=== PATIENT | male | born 1960 | race Two or more races ===

== ENCOUNTER 2020-03-08 13:24 | Emergency (ER) | payer OTHER ==
[~2020-03-08] VITALS: Ht 165.1 cm; Wt 81.6 kg
[~2020-03-08 13:24] MED LIST: COZAAR25 MG; CRESTOR5 MG; JANUMET 50-1,1 UDTAB; JANUVIA25 MG
== END 2020-03-08 17:37 | disposition home or self-care (01) ==
LOC: ER 13:24 → CPU-OBS 13:35 → ER 17:37
DX: I16.1 Hypertensive emergency (principal); F06.4 Anxiety disorder due to known physiological condition; Z20.822 Contact with and (suspected) exposure to COVID-19
CPT/HCPCS: 70450; G0378; G0379; 93005

== ENCOUNTER 2020-10-11 08:00 | Outpatient (CLI) | payer OTHER | END 2020-10-11 08:30 | disposition home or self-care (01) | LOC: PPH VACUNA 08:00 | DX: Z23 Encounter for immunization (principal) ==

== ENCOUNTER 2020-11-21 12:29 | Outpatient (CLI) | payer OTHER | END 2020-11-21 16:46 | disposition home or self-care (01) | LOC: SONOGRAMA 12:29 | DX: M25.512 Pain in left shoulder (principal) ==